=== PATIENT | male | born 1970 | race Caucasian/White ===

== ENCOUNTER 2016-07-25 07:53 | Inpatient (IN) ==
[2016-07-25] MEDS ORDERED: DUONEB (A & A) INH ONE (08:04)
--- NOTE | 2016-07-25 08:49 | Diag Imaging Result Document ---
PROCEDURE NAME: CHEST-2 VIEWS - 07/25/2016 CHEST X-RAY, 2 VIEWS: COMPARISON: None. FINDINGS: The lungs are normally expanded and clear. Heart size and mediastinal contours are normal. No pneumothorax or pleural effusion. IMPRESSION: Negative exam.
[2016-07-25 09:00] LABS: EOS# 0.02 X1000 (0.0-0.7); EOS% 0.1 % (0.0-10.0); HEMATOCRIT 47.9 % (42.0-52.0); IMM GRAN# 0.05 X1000 (0.0-0.04); IMM GRAN% 0.2 % (0.0-0.5); LYMPH# 1.29 X1000 (1.2-3.4); LYMPH% 6.4 % (20.5-51.1); MANUAL DIFF NEEDED? YES; MCH 29.9 PG (27-31); MCHC 33.4 g/dL (33-37); MCV 89.4 FL (81-99); MONO# 0.64 X1000 (0.11-0.59); MONO% 3.2 % (1.7-9.3); MPV 10.6 FL (7.4-10.4); NEUT% 90.1 % (42.2-75.2); PLT 285 X1000 (130-400); RBC 5.36 XMIL (4.7-6.1)
[2016-07-25 09:14] LABS: AGAP 15; ALBUMIN 3.9 g/dL (3.5-5.0); ALKALINE PHOSPHATASE 129 U/L (32-122); BUN 16 mg/dL (8-22); CALCIUM 8.7 mg/dL (8.8-10.2); CHLORIDE 99 mmol/L (98-107); COSMO 280; GOT 18 U/L (10-34); GPT 17 U/L (10-44); POTASSIUM 4.2 mmol/L (3.5-5.1); SODIUM 132 mmol/L (136-145); TCO2 18 mmol/L (25-35); TOTAL BILIRUBIN 0.19 mg/dL (0.20-1.00); TOTAL PROTEIN 7.1 g/dL (6.3-8.3)
[2016-07-25 09:17] LABS: BANDS 2 % (0-1); LYMPHS 4 % (21-51)
[2016-07-25 09:19] LABS: ALLEN TEST YES; BE -4.6 mmoll (-3.0-3.0); BLOOD TYPE ARTERIAL; DRAW SITE R RADIAL; METHB 1.3 % (0.0-1.5); MODALITY ROOM AIR; O2(CT) 20.9 mL/dL (15.0-23.0); PCO2(98.6) 34 mmHg (35-45); PO2(98.6) 65 mmHg (60-100); SAMPLE BLOOD; SAO2 95.8 % (95.0-100.0); THB 16.4 g/dL (11.5-17.4); pH(98.6) 7.37 (7.35-7.45)
--- NOTE | 2016-07-25 09:29 | PROVIDER DOCUMENTATION ---
HPI-Chest Pain - General Chief Complaint: Chest Pain Stated Complaint: CP,VOMITING Time Seen by Provider: 07/25/16 08:04 Source: patient Allergies/Adverse Reactions: Patient Allergies Allergy/AdvReac Type Severity Reaction Status Date / Time No Known Allergies Allergy Verified 07/25/16 08:25 Home Medications: Home Medication List Medication Instructions Recorded Confirmed Last Taken Type No Home Medications 07/25/16 07/25/16 Unknown History - History of Present Illness-CP Nature of Presenting Problem: pt is a 45 y/o M that presents to the ER with left sided chest pain that radiates to left arm. Pain has been intermitted, aching in nature. He reports a cough with clear white sputum, n/v. Patient denies fever/chills. No cardiac history. Has been without BP meds for almost a year Location: reports: other (left chest) Chest Pain Radiation: reports: arms (left) Quality of Pain: reports: dull Severity in ED: mild, moderate Onset/Duration: abrupt, this morning Timing: still present, constant Context/Activities at Onset: reports: none Modifying Factors: improves with: nothing Associated Symptoms: reports: nausea, vomiting. denies: abdominal pain, back pain, diaphoresis, fever/chills, shortness of breath Nitro Today/Relief: no nitro taken today Aspirin Treatment Today: 325 mg x 1, provided by ED Prior Chest Pain/Cardiac Workup: reports: no prior chest pain, no prior cardiac workup Similar Symptoms Previously?: No Recently Seen Here or By Another Healthcare Provider: No Review of Systems - Adult - REVIEW OF SYSTEMS - ADULT Constitutional: denies: chills, fever Eyes: reports: no symptoms reported Ears, Nose, Mouth & Throat: denies: ear pain, sinus problem, throat pain, throat swelling Cardiovascular: reports: chest pain. denies: palpitations, syncope Respiratory: reports: cough, shortness of breath. denies: wheezing Gastrointestinal: reports: nausea, vomiting. denies: abdominal pain, diarrhea Genitourinary: reports: no symptoms reported Musculoskeletal: reports: no symptoms reported Integumentary: reports: no symptoms reported Neurological: denies: dizziness/vertigo, headache/migraines, seizure, syncope Psychiatric: reports: no symptoms reported Endocrine: reports: no symptoms reported Hematologic/Lymphatic: reports: no symptoms reported Allergic/Immunologic: reports: no symptoms reported All Other Systems: Reviewed and Negative Past History - Adult - PAST MEDICAL HISTORY-ADULT Review of Records: reports: Old Records Reviewed, Nursing Assessment Review, Medications Reviewed Cardiovascular: reports: HTN. denies: cardiac disease Other Conditions: reports: eczema - PRIOR SURGERIES/PROCEDURES Surgical/Procedure History: reports: tonsillectomy, other (vasectomy) - IMMUNIZATION STATUS Childhood Immunizations: See Nurse Assessment Flu Vaccine: See Nurse Assessment - FAMILY HISTORY Family History: reviewed, not pertinent, other (psoriasis, dm) - SOCIAL HISTORY Smoking: cigarettes, greater than 1 pack/day Living Situation: family Physical Exam-General - PHYSICAL EXAM-ADULT Initial Vital Signs Reviewed: Yes - CONSTITUTIONAL General Appearance: alert, no apparent distress - EYES Eyes: PERRL/EOMI, pink conjunctivae - HEAD, EARS, NOSE, MOUTH & THROAT HENMT: normocephalic/atraumatic, moist mucous membranes, normal ENT inspection - NECK Neck: full range of motion, normal inspection - RESPIRATORY Respiratory: no respiratory distress, no accessory muscle use, wheezing ( expiratory) - CARDIOVASCULAR Cardiovascular: regular rate, rhythm, no edema, no murmur - GASTROINTESTINAL (ABDOMEN) Abdominal Exam: normal bowel sounds, non tender, soft, no organomegaly, no pulsatile mass - MUSCULOSKELETAL Extremity: no calf tenderness, normal capillary refill, pelvis stable, pedal edema (trace to 1 plus pitting) - SKIN Integumentary: normal color, warm/dry - NEUROLOGIC Neurologic: grossly normal, no motor/sensory deficits - PSYCHIATRIC Psych/Mental Status: normal mood/affect, normal thought content, normal thought process, oriented x 3 Progress - PLAN OF CARE/RESULTS Progress/Plan/Lab Results: Vital Signs Temp Pulse Resp BP Pulse Ox 07/25/16 09:30 78 18 190/124 96 07/25/16 08:59 79 22 96 07/25/16 08:46 79 22 195/116 93 L 07/25/16 07:57 97.5 F L 97 H 20 192/114 98 No Known Allergies Allergy (Verified 07/25/16 08:25) No Home Medications 07/25/16 Laboratory 07/25/16 07/25/16 07/25/16 08:30 08:30 08:30 WBC 20.17 H RBC 5.36 Hgb 16.0 Hct 47.9 MCV 89.4 MCH 29.9 MCHC 33.4 RDW Std Deviation 13.4 Plt Count 285 MPV 10.6 H Immature Gran % (Auto) 0.2 Neut % (Auto) 90.1 H Lymph % (Auto) 6.4 L [place] % (Auto) 3.2 Eos % (Auto) 0.1 Baso % (Auto) 0.0 Immature Gran # (Auto) 0.05 H Neut # (Auto) 18.16 H Lymph # (Auto) 1.29 [place] # (Auto) 0.64 H Eos # (Auto) 0.02 Baso # (Auto) 0.01 Segmented Neutrophils 94 H Band Neutrophils 2 H Lymphocytes 4 L Specimen Type Sample Site pH pCO2 pO2 HCO3 Base Excess Oxyhemoglobin ABG O2 Sat (Calculated) ABG O2 Saturation ABG Carboxyhemoglobin ABG Methemoglobin Larry Test A-a O2 Difference Total Hemoglobin Lactate Blood Gas Modality FiO2 % Sodium 132 L Potassium 4.2 Chloride 99 Carbon Dioxide 18 L Anion Gap 15 BUN 16 Creatinine 0.7 Estimated GFR/1.73 m2 > 60 BUN/Creatinine Ratio 23 Glucose 349 H Calculated Osmolality 280 Calcium 8.7 L Total Bilirubin 0.19 L AST 18 ALT 17 Alkaline Phosphatase 129 H Troponin T Oyx-F-Psihvjkxytk Pept 417 H Total Protein 7.1 Albumin 3.9 Globulin 3.2 Albumin/Globulin Ratio 1.2 07/25/16 07/25/16 08:30 08:05 WBC RBC Hgb Hct MCV MCH MCHC RDW Std Deviation Plt Count MPV Immature Gran % (Auto) Neut % (Auto) Lymph % (Auto) [place] % (Auto) Eos % (Auto) Baso % (Auto) Immature Gran # (Auto) Neut # (Auto) Lymph # (Auto) [place] # (Auto) Eos # (Auto) Baso # (Auto) Segmented Neutrophils Band Neutrophils Lymphocytes Specimen Type ARTERIAL Sample Site R RADIAL pH 7.37 pCO2 34 L pO2 65 HCO3 21.1 Base Excess -4.6 L Oxyhemoglobin 90.9 L ABG O2 Sat (Calculated) 20.9 ABG O2 Saturation 95.8 ABG Carboxyhemoglobin 3.80 H ABG Methemoglobin 1.3 Larry Test YES A-a O2 Difference 42.0 Total Hemoglobin 16.4 Lactate 1.50 Blood Gas Modality ROOM AIR FiO2 % 21.0 Sodium Potassium Chloride Carbon Dioxide Anion Gap BUN Creatinine Estimated GFR/1.73 m2 BUN/Creatinine Ratio Glucose Calculated Osmolality Calcium Total Bilirubin AST ALT Alkaline Phosphatase Troponin T 0.031 Pcx-C-Erprkewcbfe Pept Total Protein Albumin Globulin Albumin/Globulin Ratio Orders Category Date Time Status Saline Loc NOW Care 07/25/16 08:04 Active CHEST-2 VIEWS [RAD] Stat Exams 07/25/16 08:04 Draft ABG [RESP] Routine Lab 07/25/16 08:05 Completed BLOOD CULTURE [BLDCUL] Stat Lab 07/25/16 08:30 Received CBC WITH DIFF [HEME] Stat Lab 07/25/16 08:30 Completed COMPREHENSIVE METABOLIC PANEL [CHEM] Stat Lab 07/25/16 08:30 Completed DIRECT STREP Stat Lab 07/25/16 08:33 Completed INFLUENZA SCREEN A/B Stat Lab 07/25/16 08:33 Completed PRO B-NATRIURETIC PEPTIDE Stat Lab 07/25/16 08:30 Completed TROPONIN T Stat Lab 07/25/16 08:30 Completed Albuterol 2.5MG/Ipratrop 0.5MG [Duoneb (A & A)] Med 07/25/16 08:04 Discontinued 3 ml INH NOW ONE CefTRIAXONE 1 GM/NS [Rocephin 1 gm/Ns] 50 ml Med 07/25/16 09:32 Active IV NOW Furosemide [Lasix] Med 07/25/16 09:32 Discontinued 40 mg IV NOW ONE Ibuprofen [Motrin] Med 07/25/16 09:32 Discontinued 800 mg PO NOW ONE Labetalol Med 07/25/16 09:32 Discontinued 20 mg IV NOW ONE Aerosol Treatments Routine Oth 07/25/16 08:05 Completed Aerosol Treatments Stat Oth 07/25/16 08:05 Completed Pulse Oximetry Stat Oth 07/25/16 08:04 Completed EKG [EKG] Stat Ther 07/25/16 07:56 Ordered - EKG 1 Time of EKG reading by physician:: 07:55 EKG Read and Signed by:: Peña Recio EKG Interpretation (*Must complete 3 of following elements*): Abnormal Rate: 93 Rhythm: Sinus Rhythm with PACs Isabel: normal QRS: normal KS Interval: normal ST Wave: non-specific ST changes (v2, v3) - XRAY 1 XRAY Study: Chest Impression: Abnormal XRAY Interpretation: negative per radiology, CHF( mild) per - CONSULTS/PCP/HOSPITALIST Notification #1 *Consult/PCP/Hospitalist*: ( 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) Time Discussed: 10:03 Consult Disposition: Will see in ED, Admit Departure - Departure Time of Disposition Order: 10:04 DIAGNOSIS: Chest pain in adult, Uncontrolled hypertension CHF (congestive heart failure) Qualifiers: Congestive heart failure type: systolic Congestive heart failure chronicity: acute Qualified Code(s): I50.21 - Acute systolic (congestive) heart failure Disposition: ADMITTED INPATIENT 09 Certified Medical Emergency: Emergent Condition: Stable - Critical Care Note Total Time (mins): 45 Critical Care Statement: This patient required my direct personal management to treat or rule out processes, the absence of which, could potentiallly result in sudden, clinically significant life or limb threatening deterioration. Attestation - Scribe Verification/Attestation Scribe:: Ac Soriano Acting as Scribe for:: Peña Recio Scribe documention review:: This chart was documented by a scribe and accurately reflects the service the provider performed and the decisions made by the provider. Physician Attestation - Physician Attestation I, the provider, attest to the following statement:: Peña Recio Physician documentation Attestation:: This documentation recorded by the scribe accurately reflects the service I personally performed and the decisions made by me.
[2016-07-25] MEDS ORDERED: LASIX IV ONE (09:32)
[2016-07-25] MEDS ORDERED: MOTRIN PO ONE (09:32)
[2016-07-25] MEDS ORDERED: ROCEPHIN 1 GM/NS 50 ML IV ONE (09:32)
[2016-07-25] MEDS ORDERED: LABETALOL IV ONE (09:32)
[2016-07-25] MEDS ORDERED: ZITHROMAX 500 MG/NS 250 ML IV ONE (10:05)
[2016-07-25] MEDS ORDERED: ASPIRIN PO ONE (10:48)
[2016-07-25] MEDS ORDERED: NITROGLYCERIN TOP ONE (10:48)
[2016-07-25] MEDS ORDERED: HUMULIN R IV ONE (10:50)
--- NOTE | 2016-07-25 10:51 | EKG Report ---
Test Performed on : 07/25/2016 07:55:24 AM Test Reason : cp Blood Pressure : / mmHG Vent. Rate : 093 BPM Atrial Rate : 093 BPM P-R Int : 144 ms QRS Dur : 104 ms QT Int : 358 ms P-R-T Axes : 062 069 068 degrees QTc Int : 445 ms Sinus rhythm. with premature atrial complexes. Nonspecific ST abnormality Abnormal ECG No previous ECGs available Unconfirmed Result
--- NOTE | 2016-07-25 11:34 | ED EKG INTERP ---
EKG Interpretation - EKG Time of EKG reading by physician:: 11:30 EKG Read and Signed by:: Peña Recio EKG Interpretation (*Must complete 3 of following elements*): Abnormal Rate: 73 (junctional ST depression, probably normal ) Rhythm: Normal sinus rhythm wiht sinus arrhythmia Attestation - Scribe Verification/Attestation Scribe:: Kimberley Cleary Acting as Scribe for:: Peña Recio Scribe documention review:: This chart was documented by a scribe and accurately reflects the service the provider performed and the decisions made by the provider.
[2016-07-25] MEDS ORDERED: TYLENOL PO PRN (11:49)
[2016-07-25] MEDS ORDERED: APRESOLINE IV PRN (11:49)
[2016-07-25] MEDS ORDERED: LOVENOX SUBQ SCH ×2 (11:49→18:00)
[2016-07-25] MEDS ORDERED: NICODERM PATCH TD PRN (11:49)
[2016-07-25 12:00] LABS: INR 0.98; PROTIME 10.3 Seconds (9.2-11.7)
--- NOTE | 2016-07-25 12:04 | HISTORY AND PHYSICAL ---
PRIMARY CARE PROVIDER: None. CHIEF COMPLAINT: Chest pain. HISTORY OF PRESENT ILLNESS: Mr. Crum is a 45-year-old, male with a history of uncontrolled hypertension and nicotine dependence, who presents with acute onset of chest pain that essentially woke him up out of bed this morning at 3:30. He woke up with a left-sided pressure and ache that was radiating to his left arm associated with nausea and vomiting and diaphoresis. Since that time, the pain has been intermittent, coming and going on its own without any interventions. He denies that it is getting worse every time that it comes, but he is hurting currently. He is also reporting productive cough over the past month, but denies any fevers or chills. He denies any purulent expectoration. He denies any orthopnea, lower extremity edema. He denies PND. He has had no recent abdominal pain, diarrhea or constipation. He came to the ER for evaluation. In the ER he had labs and diagnostics done. He was noted to have leukocytosis with a WBC of 20. His chemistry revealed a glucose of 349, proBNP of 417. An ABG was also done and showed elevated carboxyhemoglobin, but his ventilatory status was stable. EKG showed sinus rhythm, but he did have half a millimeter of ST depression in the anterior leads. Cardiac enzymes are normal. He states that he has not seen a doctor in over 2 years. He is supposed to be on blood pressure medicine, but he has not taken any because of his financial situation in over 2 years. Given his constellation of symptoms, we are going to admit the patient for further treatment and evaluation. PAST MEDICAL HISTORY: 1. Nicotine dependence. 2. Hypertension, uncontrolled. 3. Eczema. SURGICAL HISTORY: Vasectomy and tonsillectomy. SOCIAL HISTORY: Patient smokes a pack a day. He denies drug or alcohol use. 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 He is ; he has no children. FAMILY HISTORY: Father with a brain aneurysm; mother unknown. REVIEW OF SYSTEMS: Fourteen-point review of systems obtained and found to be negative with the exception of the HPI. ALLERGIES: None. HOME MEDICATIONS: None. PHYSICAL EXAMINATION: VITAL SIGNS: Blood pressure is 190/124, heart rate 78, respiratory rate 18, O2 saturation 96% on room air. Temperature is 97.5 degrees. GENERAL: This is an overweight, male, lying in hospital bed in no acute distress. NEUROLOGIC: The patient is awake, alert, and oriented. He follows commands without focal deficits. HEENT: Head is atraumatic and normocephalic. Pupils are equal, round, reactive to light. Oral mucosa is moist. NECK: Trachea is midline. No JVD or carotid bruits. CHEST: Diminished at the bases, but clear to auscultation bilaterally. CV: Regular rate and rhythm. No murmurs, gallops, clicks, or rubs. S1 and S2 is noted. GI: Soft, nondistended, nontender. Bowel sounds are positive. EXTREMITIES: Without edema, clubbing or cyanosis. Pulses are palpable bilaterally. DIAGNOSTIC DATA: Chest x-ray shows mild cardiomegaly and perhaps some increased interstitial markings. Nothing acute. EKG with sinus rhythm with nonspecific ST depression in the anterior leads. WBC 20, hemoglobin 16, hematocrit 47.9, platelet count 285. ABG on room air: A pH 7.37, CO2 34, O2 65, bicarbonate 21. Sodium 132, potassium 4.2, chloride 99, CO2 18, anion gap 15. BUN 16, creatinine 0.7, glucose 349. Bilirubin 0.19, AST 18, ALT 17, alkaline phosphatase 129. Troponin 0.031. ProBNP 417. Albumin 3.9. ASSESSMENT/PLAN: 1. Chest pain: Given his uncontrolled comorbidities, his symptoms are concerning for ischemic heart disease. We are going to admit him and check an echocardiogram. We will out myocardial infarction with cardiac enzymes. Add nitroglycerin paste, aspirin and monitor telemetry closely. We are also going to check a D-dimer; if positive, we will check a computed tomography angiography of his chest to rule out for pulmonary embolism and interstitial lung disease. 2. Leukocytosis: This is isolated. The patient is not tachycardic nor is he febrile, but given the symptoms of cough and expectoration we are going to go ahead and treat him for bronchitis with DuoNebs, Rocephin and aggressive pulmonary toilet. We may consider CT of the chest if his D-dimer is positive. 3. Uncontrolled hyperglycemia: Patient has a glucose of 349, which likely gives him the diagnosis of diabetes. We are going to check a hemoglobin A1c. Add pattern sugars and sliding scale insulin. He will need significant lifestyle modification education. 4. Uncontrolled hypertension: We are adding half an inch of Nitrol paste as well as p.r.n. hydralazine and labetalol. 5. Nicotine dependence: Patient has been highly advised to quit smoking. Nicotine patch has been prescribed. We will continue daily cessation education. 6. Medical noncompliance: Patient reports he has not been taking any medicines or seeing any providers in the past 2 years. We gave him some education on the [facility], as well as either 3 or 4 dollar medications in the surrounding area. 7. Deep vein thrombosis prophylaxis with Lovenox. Further recommendations to follow. Dictated by SUSAN Benavides for Quinn Gordon MD
[2016-07-25 12:19] LABS: FREE T4 1.24 ng/dL (0.93-1.70)
[2016-07-25] MEDS: ROCEPHIN 1 GM/NS 50 ML IV SCH ×2 (12:28→12:46)
[2016-07-25 12:40] LABS: CK INDEX 5.1 (0.0-2.5); CK-MB 29.43 ng/mL (0.0-5.0)
[2016-07-25] MEDS ORDERED: LOVENOX SUBQ ONE (14:00)
--- NOTE | 2016-07-25 14:06 | EKG Report ---
Test Performed on : 07/25/2016 1:56:43 PM Test Reason : nonqmi Blood Pressure : / mmHG Vent. Rate : 085 BPM Atrial Rate : 085 BPM P-R Int : 146 ms QRS Dur : 100 ms QT Int : 380 ms P-R-T Axes : 068 072 059 degrees QTc Int : 452 ms Normal sinus rhythm. Normal ECG When compared with ECG of 25-JUL-2016 11:30, (Unconfirmed) T wave inversion now evident in Inferior leads Confirmed by Angelo GODWIN, Larry Quinonez ([id number]) on 07/25/2016 5:19:34 PM
[2016-07-25 14:14] LABS: URINE CULTURE NEEDED? NO; URINE MICRO REVIEW NEEDED? NO; URINE SOURCE CLEAN CATCH
[2016-07-25] MEDS ORDERED: LOPRESSOR PO SCH ×4 (14:15→21:04)
[2016-07-25 14:25] LABS: BILIRUBIN URINE NEGATIVE (NEGATIVE); BLOOD URINE NEGATIVE (NEGATIVE); COLOR YELLOW; GLUCOSE URINE >1000 mg/dL (NEGATIVE); LEUKOCYTES URINE NEGATIVE (NEGATIVE); NITRITE URINE NEGATIVE (NEGATIVE); PROTEIN URINE TRACE mg/dL (NEGATIVE); SP GRAVITY URINE 1.014; TURBIDITY URINE CLEAR (CLEAR); UROBILINOGEN URINE NORMAL (NORMAL)
[2016-07-25 14:27] LABS: UR EPITHELIAL CELLS <10 /HPF (<10); URINE BACTERIA NEGATIVE /HPF; URINE RBC <10 /HPF (<10); URINE WBC <10 /HPF (<10)
[2016-07-25 14:28] LABS: UR AMPHETAMINES QUAL NONE DETECTED (NONE DETECT); UR BARBITUATES QUAL NONE DETECTED (NONE DETECT); UR BENZODIAZEPIN QUAL NONE DETECTED (NONE DETECT); UR CANNABINOIDS QUAL NONE DETECTED (NONE DETECT); UR COCAINE QUAL NONE DETECTED (NONE DETECT); UR METHADONE QUAL NONE DETECTED (NONE DETECT); UR OPIATES QUAL NONE DETECTED (NONE DETECT); UR OXYCODONE QUAL NONE DETECTED (NONE DETECT); UR PCP QUAL NONE DETECTED (NONE DETECT)
--- NOTE | 2016-07-25 14:43 | CONSULTATION ---
DATE OF CONSULTATION: 07/25/2016 HISTORY OF PRESENT ILLNESS: cardiology consult for non-Q- wave myocardial infarction. Patient 45 year old has history of hypertension, has nicotine dependence, comes with complaints of having chest pain with which he woke up at 3:30 a.m. and described as left-sided pressure-like sensation with radiation to the left arm associated with some nausea and diaphoresis. Patient has been having intermittent chest pains and came to the emergency room. Electrocardiogram revealed normal sinus rhythm with nonspecific ST-T changes with minimal 0.5 mm elevation nonspecific changes in the inferior leads. Repeat electrocardiogram at 1356 hours revealed no significant ST elevation to suggest acute ST elevation DC. At time of my examination patient was pain free. For the last few months he has been having episodes of chest discomfort, which he describes as starts as a sharp-like then pressure-like sensation which lasts for about 10 minutes relieved with rest. This has been ongoing. Symptoms worsened this morning and he came to the emergency room where he was admitted. The episodes of chest pain were also associated with some shortness of breath. There are no palpitations. There is no syncope. REVIEW OF SYSTEMS: A 14-point review of systems was done. Gastrointestinal: There is no history of nausea, vomiting, diarrhea. There is no history of hematemesis or melena. Central nervous system: No focal weakness to suggest a CVA or TIA. Genitourinary: There is no dysuria or hematuria. PAST MEDICAL HISTORY: Hypertension, nicotine dependence. PAST SURGICAL HISTORY: Vasectomy, tonsillectomy. SOCIAL HISTORY: Patient smokes a pack of cigarettes a day. He denies alcohol or drug abuse. 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 FAMILY HISTORY: There is no premature family history of coronary artery disease. PHYSICAL EXAMINATION: Vital signs: When he came in, blood pressure was 190/ 124. At time of my examination, blood pressure was 151/98. Cardiovascular: Normal jugular venous pressure. There no thyromegaly. There is no carotid bruit. First and second heart sounds were heard. There is no S3, S4 or gallop. Respiratory: Normal air entry. There are no crepitations or rhonchi. Abdomen: Soft, nontender. There was no guarding or rigidity. Bowel sounds were heard. Central nervous system: Alert and was moving all 4 extremities. Extremities: Examination of extremities revealed no pedal edema. HEENT: Head atraumatic, normocephalic. Pupils were equal and reacting to light. LABORATORY STUDIES AND IMAGING: Chest x-ray was unremarkable. WBC 20, hemoglobin 16, hematocrit 47, platelet count of 285,000. Chemistry: Sodium 132, potassium 4.2, BUN 16, creatinine 0.7. His troponin was 0.4 with a creatine kinase of 573, CK-MB of 29.43, TSH 1.9, glucose 349, hemoglobin A1c of 9.0. ASSESSMENT AND PLAN: Mr. Randolph Crum is a 45-year-old, gentleman with hypertension who comes with complaints of ongoing chest pain for the last few months as described above. He had severe chest discomfort this morning. Patient has non-Q-wave myocardial infarction. 1. Given this, we will get serial cardiac enzymes. We will set him up for a left heart catheterization. Risks, benefits, alternatives were explained. Patient will be set up for left heart catheterization in the morning. 2. We will get serial cardiac enzymes. He has been started on aspirin and Lovenox. We will also give him beta-blockers and Lipitor. We will also get an echocardiogram to assess cardiac and valvular function. 3. His white count was elevated. He has been started on antibiotics. No obvious source of infection. This may be stress related as well. However, would recommend continuing the antibiotics at the prsent time He has a hemoglobin A1c of 9, elevated blood sugars. This is new onset diabetes. We will defer treatment to the hospitalist service. 4. His proBNP was 417. 5. Thyroid stimulating hormone was 1.90. 6. We will get an echocardiogram. He came in with accelerated hypertension as we will start RAYMOND inhibitors as well to control his blood pressures. He is not known to be allergic to any medications. Thank you for the consult. We will follow hospital course. [facility] HOSPITALJodie
[2016-07-25 14:48] LABS: HDL 27 mg/dL (35-55); LDL 111 mg/dL; TRIGLYCERIDES 137 mg/dL (39-160); VLDL 27 mg/dL
[2016-07-25] MEDS: 1/2 NS 1,000 ML IV SCH (16:14)
[2016-07-25] MEDS: COZAAR PO SCH (16:14)
[2016-07-25] MEDS: NITROGLYCERIN TOP SCH ×2 (16:14→21:26)
[2016-07-25] MEDS: HUMALOG SUBQ SCH ×2 (16:30→21:25)
[2016-07-25 20:52] LABS: CK INDEX 5.3 (0.0-2.5); CK-MB 137.9 ng/mL (0.0-5.0)
[2016-07-25] MEDS ORDERED: LIPITOR PO SCH (21:00)
[2016-07-25] MEDS ORDERED: LOPRESSOR PO ONE ×2 (21:07→21:30)
[2016-07-26] MEDS: 1/2 NS 1,000 ML IV SCH (03:20)
[2016-07-26 03:46] LABS: MANUAL DIFF NEEDED? NO
[2016-07-26 03:51] LABS: BASO% 0.1 % (0.0-0.8); EOS# 0.17 X1000 (0.0-0.7); EOS% 1.1 % (0.0-10.0); HEMATOCRIT 43.1 % (42.0-52.0); HEMOGLOBIN 14.6 g/dL (14.0-18.0); IMM GRAN# 0.03 X1000 (0.0-0.04); IMM GRAN% 0.2 % (0.0-0.5); LYMPH% 21.5 % (20.5-51.1); MCH 30.4 PG (27-31); MCHC 33.9 g/dL (33-37); MCV 89.8 FL (81-99); MONO# 1.32 X1000 (0.11-0.59); MONO% 8.4 % (1.7-9.3); MPV 10.1 FL (7.4-10.4); NEUT% 68.7 % (42.2-75.2); PLT 279 X1000 (130-400)
[2016-07-26 03:57] LABS: INR 1.01; PROTIME 10.6 Seconds (9.2-11.7); PTT 29.6 Seconds (22.0-36.0)
[2016-07-26 04:02] LABS: AGAP 14; ALBUMIN 3.7 g/dL (3.5-5.0); ALKALINE PHOSPHATASE 89 U/L (32-122); BUN 12 mg/dL (8-22); CALCIUM 8.8 mg/dL (8.8-10.2); CHLORIDE 99 mmol/L (98-107); COSMO 275; GOT 233 U/L (10-34); GPT 45 U/L (10-44); MAGNESIUM 1.7 mg/dL (1.5-2.7); POTASSIUM 4.2 mmol/L (3.5-5.1); SODIUM 135 mmol/L (136-145); TCO2 22 mmol/L (25-35); TOTAL BILIRUBIN 0.52 mg/dL (0.20-1.00); TOTAL PROTEIN 6.7 g/dL (6.3-8.3)
[2016-07-26 04:03] LABS: HDL 22 mg/dL (35-55); LDL 74 mg/dL; TRIGLYCERIDES 254 mg/dL (39-160); VLDL 51 mg/dL
[2016-07-26 04:28] LABS: CK INDEX 5.2 (0.0-2.5); CK-MB 93.23 ng/mL (0.0-5.0)
--- NOTE | 2016-07-26 05:30 | EKG Report ---
Test Performed on : 07/25/2016 11:30:36 AM Test Reason : REPEAT Blood Pressure : / mmHG Vent. Rate : 073 BPM Atrial Rate : 073 BPM P-R Int : 146 ms QRS Dur : 098 ms QT Int : 416 ms P-R-T Axes : 052 067 089 degrees QTc Int : 458 ms Normal sinus rhythm. with sinus arrhythmia. Junctional ST depression, probably normal Borderline ECG When compared with ECG of 25-JUL-2016 07:55, (Unconfirmed) premature atrial complexes. are no longer present Nonspecific T wave abnormality now evident in Lateral leads Unconfirmed Result
[2016-07-26] MEDS ORDERED: LOVENOX SUBQ SCH (06:00)
[2016-07-26] MEDS: NITROGLYCERIN TOP SCH (06:09)
[2016-07-26] MEDS: HUMALOG SUBQ SCH ×2 (06:12→13:11)
--- NOTE | 2016-07-26 06:43 | EKG Report ---
Test Performed on : 07/26/2016 06:27:31 AM Test Reason : cath Blood Pressure : / mmHG Vent. Rate : 076 BPM Atrial Rate : 076 BPM P-R Int : 140 ms QRS Dur : 094 ms QT Int : 418 ms P-R-T Axes : 036 068 -06 degrees QTc Int : 470 ms Sinus rhythm. with marked sinus arrhythmia. Nonspecific T wave abnormality Prolonged QT Abnormal ECG When compared with ECG of 25-JUL-2016 13:56, No significant change was found Confirmed by Angelo GODWIN, Larry Quinonez ([id number]) on 07/26/2016 5:24:33 PM
[2016-07-26] MEDS ORDERED: PRILOSEC PO SCH (07:00)
[2016-07-26 07:44] VITALS: BP 114/71
[2016-07-26] MEDS: COZAAR PO SCH (08:44)
[2016-07-26] MEDS ORDERED: ASPIRIN PO SCH (09:00)
[2016-07-26] MEDS ORDERED: VERSED ONE (10:45)
[2016-07-26] MEDS ORDERED: DILAUDID ONE (10:45)
[2016-07-26] MEDS ORDERED: HEPARIN 1000 UNITS/NS 1,000 ML ONE (10:45)
[2016-07-26] MEDS ORDERED: CLAVE TWINSITE 32 IN 11959 ONE (11:03)
--- NOTE | 2016-07-26 12:17 | CARDIAC CATH REPORT ---
PROCEDURE NAME: - INDICATION: [id number] myocardial infarction . PROCEDURES PERFORMED: 1. Left heart catheterization. 2. Selective coronary angiography. 3. Left ventriculogram. PROCEDURE IN DETAIL: Mr. Crum was brought to the catheterization laboratory in fasting state, informed consent was obtained, prepped in usual fashion. He was anesthetized over the right radial artery after Larry test proved adequate. A 5-Welsh sheath was placed via true Seldinger technique. Radial cocktail was administered. Catheters were introduced and hemodynamic measurements made of the ascending thoracic aorta. Coronary angiography was performed in multiple views using JL3.5 and JR4 diagnostic catheters. Left heart catheterization and left ventriculogram was performed using a JR4. At the conclusion of the procedure, all sheaths and catheters were removed. TR band was left inflated at 12 mL of air. Good capillary refill. Good hemostasis. Contrast 80 mL and blood loss 5 mL. No apparent complications. FINDINGS: 1. The left main is normal. 2. Left anterior descending originates from the left main. There is proximal 30% to 40% disease and moderate disease upwards of 50% scattered throughout the mid and distal vessels. There is an extremely small 1st diagonal. The 2nd diagonal has a proximal 40% to 50% lesion. 3. Circumflex originates from the left main. There is diffuse 50% to 60% disease noted throughout the proximal vessel with an ostial 50% to 60% lesion. The mid vessel, as well, has 50% to 60% disease and there are extremely small distal vessels. There does appear to be a fresh occlusion of a high obtuse marginal proximally. 4. Right coronary artery has ostial 60% to 70% disease with heavily diseased and calcified mid vessel. There is an early chronic total occlusion of the early distal vessel. There are left- to-left right collaterals primarily from the septals that feed the right coronary. 5. Left ventriculogram demonstrates an EF of 40%. There is inferior akinesis. 6. Aortic blood pressure is 88/65 with a mean of 76. 7. Left ventricular pressure is 87/11 with an LVEDP of 18. ASSESSMENT: Mr. Crum is a 45-year-old male who presented with a [id number] myocardial infarction. PLAN: Patient has an old occluded right coronary artery and a fresh occlusion appears of the obtuse marginal. We have called the Transfer Center at [facility] and they have agreed to accept the patient in transfer. Further recommendations to follow.
--- NOTE | 2016-07-26 16:27 | DISCHARGE SUMMARY ---
ADMISSION DATE: 07/25/2016 DISCHARGE DATE: 07/26/2016 DISCHARGE DIAGNOSES: 1. Chest pain, secondary to known ST elevation myocardial infarction. Status post left heart catheterization. 2. Leukocytosis. 3. Uncontrolled diabetes. 4. Hypertension, uncontrolled. 5. Nicotine dependence. 6. Medical noncompliance. CONSULTATION: Cardiology Department. HOSPITAL COURSE: Mr. Crum is a 45-year-old male with a past medical history of uncontrolled hypertension, diabetes and nicotine dependence, who came to the emergency department with a chief complaint of chest pain that woke him up out of the bed yesterday at 3:30. He states that the chest pain was pressure-like an ache radiated to his left arm associated with nausea and vomiting and diaphoresis. Also, he states that he has been having this kind of intermittent, coming and going on pain for some weeks now, but he did not seek any medical attention. He was admitted to the CIC unit and Cardiology Department was consulted. The troponins increased from 0.03 to 0.4 and then to 4.6. This patient went for a cardiac cath today, and because of the evidence of some kind of obstruction at the level of the RCA and LAD, they decided to transfer this patient to a higher level care facility, [facility], for further treatment. Upon discharge, the patient was in unstable medical condition. PHYSICAL EXAMINATION: Vital signs: Temperature 98.7 degrees, pulse 74, respiratory rate 18, blood pressure 114/71, oxygen saturation 98 on room air. HEENT: Head normocephalic. No trauma. PERRLA. Neck: Supple. No JVD. No masses. Central trachea. Chest: Clear to auscultation. No wheezing. No rales. Cardiovascular: RRR. No murmurs. No gallops. No rubs. Abdomen: Soft, nontender, nondistended. No hepatosplenomegaly. Obese. Extremities: No edema. No clubbing. No cyanosis. Neurological examination: The patient is alert, oriented x3. No focal neurological deficits. LABORATORY: WBC 15.8, hemoglobin 14.6, hematocrit 43.1. PT 10.6, INR 1.0, PTT 29.6. Sodium 135, potassium 4.2, chloride 99, bicarbonate 22, BUN 12, creatinine 0.7, glucose 191, calcium 8.8, phosphorus 2.8, magnesium 1.7. Troponins 4.6, CK-MB 93.23, CK index 5.2, CK 1806. FOLLOW UP: This patient will be transferred to [facility] for further treatment. Discharge medication will be done upon discharge from [facility].
--- NOTE | 2016-07-26 18:40 | ECHO REPORT ---
ORDER DATE: 07/25/2016 ECHOCARDIOGRAM: MEASUREMENTS: Left ventricular end-diastolic diameter 5.6, end systolic diameter 4.5, posterior wall thickness 1.3, septal thickness 1.1, left atrium 3.9, aortic root 3.7. SUMMARY: 1. Technically difficult study due to limited acoustic window quality. 2. Aortic, mitral and tricuspid valves are without structural abnormality while pulmonic valve is not well demonstrated. There is trace aortic regurgitation and mild mitral regurgitation. The aortic root is normal in size. 3. Normal left ventricular dimensions suggested on 2-dimensional images. Estimated left ejection fraction approximately 55%. Regional wall motion analysis is somewhat challenging given limitations of the study. There appears to be a region of mild hypokinesis in the mid to apical inferolateral region of the left ventricle. Doppler suggests impaired left ventricle relaxation (grade 1 left ventricular diastolic dysfunction). The left atrium is mildly enlarged. Right atrium and right ventricle are normal size with grossly preserved right ventricular systolic performance. 4. No pericardial effusion. CONCLUSION: 1. Technically difficult study. 2. Mild mitral regurgitation. 3. Estimated left ejection fraction of 55%. Difficult wall motion analysis suggests mild hypokinesis in a mid to apical inferolateral region. 4. Doppler suggests grade 1 left ventricular diastolic dysfunction. 5. Mild left atrial enlargement.
== END 2016-07-26 13:20 | disposition short-term general hospital (02) | DRG 282 ==
LOC: ED 07:53 → 4N 11:22 → OBSVTOIN 11:22 → DIRADM 14:12 → 4N 14:18 → 3S 15:55
PROVIDERS: ADMIT Internal Medicine; ATTEND Internal Medicine
PROC: 4A023N7 Measurement of Cardiac Sampling and Pressure, Left Heart, Percutaneous Approach (ICD-10-PCS; principal; 2016-07-26)
PROC: B2111ZZ Fluoroscopy of Multiple Coronary Arteries using Low Osmolar Contrast (ICD-10-PCS; 2016-07-26)
PROC: B2151ZZ Fluoroscopy of Left Heart using Low Osmolar Contrast (ICD-10-PCS; 2016-07-26)
DX: I21.4 Non-ST elevation (NSTEMI) myocardial infarction (principal); E11.65 Type 2 diabetes mellitus with hyperglycemia; I10 Essential (primary) hypertension; Z83.3 Family history of diabetes mellitus; F17.210 Nicotine dependence, cigarettes, uncomplicated; T50.906A Underdosing of unspecified drugs, medicaments and biological substances, initial encounter; Z91.120 Patient's intentional underdosing of medication regimen due to financial hardship; E66.9 Obesity, unspecified; I25.10 Atherosclerotic heart disease of native coronary artery without angina pectoris
CPT/HCPCS: 71020; 80053; 80061; 81001; 82550; 82553; 82805; 82948; 83036; 83735; 83880; 84100; 84439; 84443; 84484; 85025; 85379; 85610; 85730; 87040; 87081; 87430; 87804; 93005; 93010; 93306; 93458; 94640; 94761; 96365; 96367; 96375; G0480; J0456; J0696; J1170; J1644; J1650; J1815; J1940; J2250; Q9967; 80324; 80345; 80346; 80349; 80353; 80358; 80361; 80365; 83992

== ENCOUNTER 2019-03-22 07:40 | Inpatient (IN) ==
[2019-03-22] MEDS ORDERED: ROCEPHIN 1 GM in NS 50 ML IV ONE (08:09)
[2019-03-22] MEDS ORDERED: SOLU-MEDROL IV ONE (08:09)
[2019-03-22] MEDS ORDERED: ZITHROMAX PO ONE (08:09)
[2019-03-22] MEDS ORDERED: NS 1,000 ML IV ONE (08:09)
[2019-03-22] MEDS ORDERED: TYLENOL PO ONE (08:09)
[2019-03-22] MEDS ORDERED: DUONEB (A & A) INH ONE (08:09)
[2019-03-22] MEDS ORDERED: TORADOL IV ONE (08:10)
[2019-03-22 08:26] LABS: BASO# 0.01 X1000 (0.0-0.2); BASO% 0.1 % (0.0-0.8); HEMATOCRIT 39.2 % (42.0-52.0); IMM GRAN# 0.03 X1000 (0.0-0.04); IMM GRAN% 0.3 % (0.0-0.5); LYMPH# 0.76 X1000 (1.2-3.4); MCH 28.8 PG (27-31); MCHC 33.2 g/dL (33-37); MCV 86.9 FL (81-99); MONO# 0.93 X1000 (0.11-0.59); MONO% 8.6 % (1.7-9.3); MPV 10.4 FL (7.4-10.4); NEUT# 9.14 X1000 (1.4-6.5); PLT 225 X1000 (130-400); RBC 4.51 XMIL (4.7-6.1); RDW 13.7 % (11.5-14.5); WBC 10.87 X1000 (4.8-10.8)
--- NOTE | 2019-03-22 08:38 | Diag Imaging Result Doc PS360 ---
CHEST-2 VIEWS - 03/22/2019 INDICATION: cough COMPARISON: 07/25/2016 FINDINGS: There is substantial infiltrate in the left lower lobe. Heart size is normal. No pneumothorax or pleural effusion. IMPRESSION: Left lower lobe pneumonia. Electronically signed by Dustin Lowry 03/22/2019 8:36 AM
[2019-03-22 08:45] LABS: ESTIMATED GFR > 60
[2019-03-22 08:50] LABS: AGAP 19; ALB/GLOB RATIO 1.3; ALBUMIN 3.2 g/dL (3.5-5.0); ALKALINE PHOSPHATASE 57 U/L (32-122); BUN 14 mg/dL (8-22); CHLORIDE 87 mmol/L (98-107); COSMO 262; CREATININE 0.7 mg/dL (0.7-1.2); GLUCOSE 208 mg/dL (70-104); GOT 50 U/L (10-34); GPT 26 U/L (10-44); POTASSIUM 3.7 mmol/L (3.5-5.1); SODIUM 127 mmol/L (136-145); TCO2 21 mmol/L (25-35); TOTAL BILIRUBIN 0.91 mg/dL (0.20-1.00); TOTAL PROTEIN 5.7 g/dL (6.3-8.3)
[2019-03-22] MEDS ORDERED: LEVAQUIN 750 MG/D5W 750 MG/150 ML IVPB IV ONE (08:54)
--- NOTE | 2019-03-22 09:05 | PROVIDER DOCUMENTATION ---
HPI-Respiratory General - General Chief Complaint: Chest Pain Stated Complaint: HEART PT CP, COUGH Time Seen by Provider: 03/22/19 08:03 Source: patient Allergies/Adverse Reactions: Patient Allergies Allergy/AdvReac Type Severity Reaction Status Date / Time cephalexin [From Keflex] AdvReac Mild DIARRHEA Verified 03/22/19 08:56 Home Medications: Home Medication List Medication Instructions Recorded Confirmed Last Taken Type No Home Medications 07/25/16 07/25/16 Unknown History - History of Present Illness-Resp Nature of Presenting Problem: Fever, cough, left sided chest pain worsening over the last week. Thinks may have pneumonia. Some SOB and diaphoresis. No radiation of pain. HAS ASCVD and worried it may cause problems with his heart. Sees Dr. Holman. No known infectious exposures. Drove self to ER. Smoker, unable to smoke for last 2 days Quality of Pain: reports: aching, sharp Severity in ED: reports: moderate Onset/Duration: reports: last week Timing: reports: still present, constant, getting worse Context: reports: recent URI Exposure: reports: unknown cause Cough Quality/Degree: reports: moderate, productive cough Episode Frequency: no prior episodes Current Respiratory Medication Therapy: Initiated none Modifying Factors: improves with: rest. worse with: exertion, coughing Associated Symptoms: reports: chest pain/soreness, cough, dizziness, fever/chills, lightheadedness, muscle/bodyaches, nasal drainage, shortness of breath, sore throat, sweaty, wheezing Similar Symptoms Previously?: No Recently seen or treated by another doctor?: No Review of Systems - Adult - REVIEW OF SYSTEMS - ADULT Constitutional: reports: see HPI, chills, fever (subjective) Eyes: reports: no symptoms reported Ears, Nose, Mouth & Throat: reports: no symptoms reported Cardiovascular: reports: see HPI, chest pain. denies: edema, heart murmur, irregular heart rate, orthopnea, palpitations, poor circulation, PND, syncope Respiratory: reports: see HPI, cough, dyspnea on exertion, excessive sputum production, shortness of breath, wheezing. denies: chronic cough, hemoptysis, pleurisy Gastrointestinal: reports: no symptoms reported Genitourinary: reports: no symptoms reported Musculoskeletal: reports: no symptoms reported Integumentary: reports: no symptoms reported Neurological: reports: no symptoms reported Psychiatric: reports: no symptoms reported Endocrine: reports: no symptoms reported Hematologic/Lymphatic: reports: no symptoms reported Allergic/Immunologic: reports: no symptoms reported All Other Systems: Reviewed and Negative Past History - Adult - PAST MEDICAL HISTORY-ADULT Review of Records: reports: Old Records Reviewed, Nursing Assessment Review, Medications Reviewed, Social history reviewed & non-contributory. Major Childhood Illnesses: reports: denies history Cardiovascular: reports: cardiac disease, HTN Respiratory: reports: denies history Gastrointestinal: reports: denies history Obstetrical/Gynecological: reports: denies history Genitourinary: reports: denies history Musculoskeletal: reports: denies history Neurological: reports: denies history Endocrine/Immune: reports: denies history Other Conditions: reports: eczema - PRIOR SURGERIES/PROCEDURES Surgical/Procedure History: reports: tonsillectomy, other (vasectomy) - IMMUNIZATION STATUS Childhood Immunizations: See Nurse Assessment Flu Vaccine: See Nurse Assessment - FAMILY HISTORY Family History: reviewed, not pertinent, other (psoriasis, dm) - SOCIAL HISTORY Smoking: cigarettes, greater than 1 pack/day Provider spent 3-5 mins advising pt. on dangers of tobacco.: Discussed manners to quit use, and f/u contacts for add'l counseling. Substance Use: none/never Alcohol Use Frequency: rarely Living Situation: alone Physical Exam-General - PHYSICAL EXAM-ADULT Initial Vital Signs Reviewed: Yes (Tachycardic, tachypneic, initially afebrile) - CONSTITUTIONAL General Appearance: appears well, alert, no apparent distress, other (hoarse voice) - EYES Eyes: PERRL/EOMI, pink conjunctivae - HEAD, EARS, NOSE, MOUTH & THROAT HENMT: normocephalic/atraumatic, moist mucous membranes, normal ENT inspection, pharynx normal - NECK Neck: non-tender, full range of motion, supple, normal inspection - RESPIRATORY Respiratory: chest non-tender, no pleuratic chest pain, no respiratory distress, no accessory muscle use, decreased breath sounds, rhonchi (left), wheezing (exp) , dull on percussion, prolonged expiration, increased rate - CARDIOVASCULAR Cardiovascular: normal peripheral pulses, regular rate, rhythm, no edema, no gallop, no JVD, no murmur - GASTROINTESTINAL (ABDOMEN) Abdominal Exam: normal bowel sounds, non tender, soft, no organomegaly, no pulsatile mass - LYMPHATIC Lymphatic: no adenopathy - MUSCULOSKELETAL Back Exam: normal inspection. negative: decreased range of motion Extremity: normal range of motion, non-tender, normal gait, normal inspection, no pedal edema, normal capillary refill - SKIN Integumentary: normal turgor, warm/dry, pallor - NEUROLOGIC Neurologic: dominatrix II-XII nml as tested, grossly normal, no motor/sensory deficits - PSYCHIATRIC Psych/Mental Status: normal mood/affect, normal thought content, normal thought process, oriented x 3 - HEART Score HEART Score: History: Slightly Suspicious HEART Score: ECG: Non-Specific Repolarization Disturbance/LBBB/PM HEART Score: Age: 45-65 Years HEART Score: Risk Factors for Atherosclerotic Disease: > or = 3 Risk Factors or History of Atherosclerotic Disease HEART Score: Troponin: < or = Normal Limit Total HEART Score:: 4 Progress - PLAN OF CARE/RESULTS Progress/Plan/Lab Results: Vital Signs - 8 hr 03/22/19 07:43 Temperature 98.8 F Pulse Rate 103 H Respiratory Rate 20 Blood Pressure 139/90 O2 Sat by Pulse Oximetry 95 Laboratory Results - last 24 hr 03/22/19 03/22/19 03/22/19 08:08 08:08 08:08 WBC 10.87 H RBC 4.51 L Hgb 13.0 L Hct 39.2 L MCV 86.9 MCH 28.8 MCHC 33.2 RDW Std Deviation 13.7 Plt Count 225 MPV 10.4 Immature Gran % (Auto) 0.3 Neut % (Auto) 84.0 H Lymph % (Auto) 7.0 L [place] % (Auto) 8.6 Eos % (Auto) 0.0 Baso % (Auto) 0.1 Immature Gran # (Auto) 0.03 Neut # (Auto) 9.14 H Lymph # (Auto) 0.76 L [place] # (Auto) 0.93 H Eos # (Auto) 0.00 Baso # (Auto) 0.01 Sodium 127 L Potassium 3.7 Chloride 87 L Carbon Dioxide 21 L Anion Gap 19 BUN 14 Creatinine 0.7 Estimated GFR/1.73 m2 > 60 BUN/Creatinine Ratio 20 Glucose 208 H Calculated Osmolality 262 Calcium 8.0 L Total Bilirubin 0.91 AST 50 H ALT 26 Alkaline Phosphatase 57 Troponin T Qpw-R-Mmgnrpasade Pept Total Protein 5.7 L Albumin 3.2 L Globulin 2.5 Albumin/Globulin Ratio 1.3 Plasma Lactate 1.8 11/17/19 11/17/19 08:08 08:08 WBC RBC Hgb Hct MCV MCH MCHC RDW Std Deviation Plt Count MPV Immature Gran % (Auto) Neut % (Auto) Lymph % (Auto) [place] % (Auto) Eos % (Auto) Baso % (Auto) Immature Gran # (Auto) Neut # (Auto) Lymph # (Auto) [place] # (Auto) Eos # (Auto) Baso # (Auto) Sodium Potassium Chloride Carbon Dioxide Anion Gap BUN Creatinine Estimated GFR/1.73 m2 BUN/Creatinine Ratio Glucose Calculated Osmolality Calcium Total Bilirubin AST ALT Alkaline Phosphatase Troponin T 0.080 Jtd-F-Wuriwjewzbf Pept 5379 H Total Protein Albumin Globulin Albumin/Globulin Ratio Plasma Lactate Orders Category Date Time Status Saline Loc NOW Care 03/22/19 08:09 Active CHEST-2 VIEWS [RAD] Stat Exams 03/22/19 08:09 Completed BLOOD CULTURE [BLDCUL] Stat Lab 03/22/19 08:48 Received CBC WITH DIFF [HEME] Stat Lab 03/22/19 08:08 Completed COMPREHENSIVE METABOLIC PANEL [CHEM] Stat Lab 03/22/19 08:08 Completed INFLUENZA SCREEN A/B Stat Lab 03/22/19 08:48 Received LACTATE, PLASMA [CHEM] Stat Lab 03/22/19 08:08 Completed PRO B-NATRIURETIC PEPTIDE Stat Lab 03/22/19 08:08 Completed SPUTUM CULTURE WITH GRAM STAIN [RM] Urgent Lab 03/22/19 08:09 Uncollected TROPONIN T Stat Lab 03/22/19 08:08 Completed 0.9% Sodium Chloride Inj [Ns] 1,000 ml Med 03/22/19 08:09 Active IV 999 mls/hr Acetaminophen [Tylenol] Med 03/22/19 08:09 Discontinued 650 mg PO NOW ONE Albuterol 2.5MG/Ipratrop 0.5MG [Duoneb (A & A)] Med 03/22/19 08:09 Discontinued 9 ml INH NOW ONE Azithromycin [Zithromax] Med 03/22/19 08:09 Discontinued 500 mg PO NOW ONE CefTRIAXONE [Rocephin] 1 gm Med 03/22/19 08:09 Discontinued 0.9% Sodium Chloride Inj [Ns] 50 ml IV NOW Ketorolac [Toradol] Med 03/22/19 08:10 Discontinued 30 mg IV NOW ONE Levofloxacin 750 mg/D5w [Levaquin 750 mg/D5w] Med 03/22/19 08:54 Active 750 mg in 150 ml IV NOW Methylprednisolone Sod Succ [Solu-Medrol] Med 03/22/19 08:09 Discontinued 125 mg IV NOW ONE Aerosol Treatments Routine Oth 03/22/19 08:10 Active Aerosol Treatments Stat Ot 03/22/19 08:10 Active Pulse Oximetry Stat Ot 03/22/19 08:09 Active Result Diagrams: 03/22/19 08:08 03/22/19 08:08 - REASSESSMENT Reassessment #1 Time Reassessed: 09:01 Status: improving (Given IVF bolus, IV levaquin/vanco, duoneb x 3, acetaminophen po for fever, IV toradol. Patient meets sepsis criteria, but no hypotensi on/lactate negative, so NOT severe sepsis or septic shock.) - EKG 1 Time of EKG reading by physician:: 08:05 EKG Read and Signed by:: Sukhwinder Cortez EKG Interpretation (*Must complete 3 of following elements*): Abnormal Rate: 98 Rhythm: NSR [place]: normal QRS: poor R wave progression, other (bilateral atrial enlargement) ST Wave: non-specific ST changes - XRAY 1 XRAY Study: Chest Impression: Abnormal, See EMR Report ( CHEST-2 VIEWS - 03/22/2019 INDICATION: cough COMPARISON: 07/25/2016 FINDINGS: There is substantial infiltrate in the left lower lobe. Heart size is normal. No pneumothorax or pleural effusion. IMPRESSION: Left lower lobe pneumonia. Electronically signed by Dustin Lowry 03/22/2019 8:36 AM 03/22/19 0836 Interpreting Physician: uDstin Lowry MD Dictated Date/Time: 03/22/19 0832 cc: Sukhwinder Cortez MD; Elise Holman) - CONSULTS/PCP/HOSPITALIST Notification #1 *Consult/PCP/Hospitalist*: Hospitalist paged at 0900 Time Discussed: 09:10 (SUSAN hurtado) Consult Disposition: Will see in ED, Admit (to [facility]) Departure - Departure Date of Disposition Decision: 03/22/19 Time of Disposition Decision: 09:07 DIAGNOSIS: Hyponatremia Sepsis without acute organ dysfunction Qualifiers: Sepsis type: sepsis due to unspecified organism Qualified Code(s): A41.9 - Sepsis, unspecified organism Left lower lobe pneumonia Qualifiers: Pneumonia type: due to unspecified organism Qualified Code(s): J18.1 - Lobar pneumonia, unspecified organism CHF (congestive heart failure), NYHA class II Qualifiers: Congestive heart failure type: combined Congestive heart failure chronicity: acute on chronic Qualified Code(s): I50.43 - Acute on chronic combined systolic (congestive) and diastolic (congestive) heart failure Disposition: ADMITTED INPATIENT 09 Certified Medical Emergency: Emergent Condition: Fair Referrals and Follow-Ups: Elise Holman CRNP [Primary Care Provider] - - Critical Care Note This patient required my direct & personal management of CC.: Yes Total Time (mins): 34 (Resp/[employer] systems critical) Critical Care Statement: This patient required my direct personal management to treat or rule out processes, the absence of which, could potentiallly result in sudden, clinically significant life or limb threatening deterioration. Attestation - Physician/ BARBY Attestation Patient care was provided by Advanced Practice Provider:: No The physician spent face to face time with patient:: Yes Advanced Practice Provider documentation review:: Supervising physician onsite and consulted in the evaluation and care of this patient. The physician did have a face to face encounter with the patient.
[2019-03-22 09:27] LABS: INR 1.31; PROTIME 16.5 Seconds (11.0-16.0)
[2019-03-22 09:28] LABS: PTT 47.8 Seconds (22.3-41.8)
[2019-03-22 09:32] LABS: ALLEN TEST YES; BE -0.5 mmoll (-3.0-3.0); BLOOD TYPE ARTERIAL; HCO3-(ACT) 24.5 mmoll (20.0-26.0); METHB 0.1 % (0.0-1.5); O2(CT) 15.2 mL/dL (15.0-23.0); O2HB 93.3 % (95.0-99.0); PCO2(98.6) 27 mmHg (35-45); PO2(98.6) 59 mmHg (60-100); SAMPLE BLOOD; SAO2 93.4 % (95.0-100.0); THB 11.6 g/dL (11.5-17.4); pH(98.6) 7.51 (7.35-7.45)
[2019-03-22 09:33] LABS: MODALITY ROOM AIR
[2019-03-22] MEDS ORDERED: VANCOMYCIN IV PER PHARMACY MISC SCH (09:36)
[2019-03-22] MEDS ORDERED: NS 1,000 ML IV SCH (09:36)
[2019-03-22] MEDS ORDERED: DUONEB (A & A) INH PRN (09:36)
[2019-03-22] MEDS ORDERED: TYLENOL PO PRN (09:36)
[2019-03-22 09:51] LABS: CK INDEX 0.1 (0.0-2.5); CK-MB 1.76 ng/mL (0.0-5.0)
[2019-03-22] MEDS: HUMALOG SUBQ SCH ×3 (11:00→20:46)
[2019-03-22] MEDS ORDERED: GLUCOPHAGE PO SCH (12:00)
[2019-03-22] MEDS: VANCOMYCIN 2,000 MG in NS 500 ML IV SCH ×2 (12:05→23:16)
[2019-03-22] MEDS: DUONEB (A & A) INH SCH ×4 (12:10→22:42)
--- NOTE | 2019-03-22 12:17 | PROGRESS NOTE ---
DATE: 03/22/2019 SUBJECTIVE: Mr. Crum is a 48-year-old gentleman who got admitted yesterday, mainly because of cough, fever, left-sided pleuritic chest pain. Imaging studies which were done on admission suggest a left lower lobe pneumonia. Mr. Crum has a history of coronary artery disease, status post stent, borderline diabetes, hypertension, morbid obesity. This morning, he refers to be feeling a whole lot better. He has been having a lot of sweats and chills. OBJECTIVE: Current Vital Signs: Blood pressure is 104/62, pulse of 90, respirations 20, temperature is 98.8 degrees. General: Mr. Crum is a 48-year-old gentleman. He was sitting up at the edge of the bed, in no distress. HEENT: Mucosa is pink and moist. Anicteric. Acyanotic. He was drenched in sweat. Chest: Good air entry bilaterally. Some crepitations bilaterally, more to the left than the right. Cardiovascular: Regular rate and rhythm. There are no murmurs, no rubs, no gallops. GI: Abdomen was soft. It is distended, but nontender. Bowel sounds present. Extremities: No pedal edema. PET TECHNOLOGIST: The patient is awake, alert, and oriented. IMAGING AND LABORATORY DATA: WBC is 10.87. Rest of the CBC is unremarkable. Chemistry is also reviewed. Sodium is 127, potassium is 3.7, chloride is 87, bicarb is 21, AST is minimally elevated. ProBNP is slightly elevated. A chest x-ray shows a left lower lobe pneumonia. The patient is currently on Zosyn and vancomycin. ASSESSMENT: 1. Sepsis secondary to left lower lobe pneumonia. Cultures have been done. The patient has been started on broad-spectrum intravenous antibiotics. Will continue to follow. 2. Left pleuritic chest pain secondary to pneumonia. 3. History of coronary artery disease, status post stents. 4. Hypertension, controlled. 5. Dyslipidemia. cc: Roel Kwon MD
[2019-03-22 13:09] LABS: CK INDEX 0.1 (0.0-2.5); CK-MB 1.92 ng/mL (0.0-5.0)
--- NOTE | 2019-03-22 14:23 | HISTORY AND PHYSICAL ---
PRIMARY CARE PROVIDER: Marlyn Holman. RETAIL HELPER: Dr. Garcia. CHIEF COMPLAINT: Feeling terrible. HISTORY OF PRESENT ILLNESS: Mr. Crum is a 48-year-old male who carries a past medical history of coronary artery disease, status post non-STEMI and 2 stents, hypertension, hyperlipidemia, diabetes mellitus, eczema, tobacco use and abuse, who reported that Saturday night, he started having hot and cold flashes, along with a productive cough that was yellow and green sputum production. He had some associated shortness of breath with his coughing, as well as some intermittent wheezing. No chest pain per se, but he did have some lung pain, as well as headache, but no dizziness, nausea, vomiting, diarrhea. He continued to progressively get worse, and due to the lung pain and having coronary artery disease, he decided to come to the ED to be evaluated. He did try to self-medicate at home without any relief. On workup in the ED, initially he was afebrile with a heart rate of 103, normotensive blood pressures, 95% on room air, with a white count of 10. Chest x-ray revealed a left lower lobe pneumonia. He was given a dose of IV antibiotics, a L of fluid, and IV steroids, and then he spiked a temperature of 102 degrees, and the hospitalist was called for admission. He does not quite rule in for sepsis, but we will broaden his antibiotics with vancomycin and Zosyn. His lactate still remained normal. PAST MEDICAL HISTORY: 1. Coronary artery disease, status post MS and 2 cardiac stents. 2. Diabetes mellitus, on metformin. 3. Eczema. 4. Hypertension. 5. Hyperlipidemia. 6. Tobacco use and abuse. PAST SURGICAL HISTORY: 1. Two cardiac stents. 2. Tonsillectomy. 3. Vasectomy. SOCIAL HISTORY: He reports he quit smoking 2 days ago, but up until then, he continued to be a [id number] smoker. No alcohol or illicit drug use. He is . He has no children. FAMILY HISTORY: Father with a brain aneurysm. Mother unknown. REVIEW OF SYSTEMS: A 12-point review of systems was complete and negative, except for those mentioned in the HPI. ALLERGIES: Keflex causes diarrhea. HOME MEDICATIONS: 1. Metformin. 2. Lovastatin. 3. Lisinopril. 4. Coreg. 5. Aspirin. PHYSICAL EXAMINATION: VITAL SIGNS: Temperature 102.7 degrees, heart rate 96, respirations 22, blood pressure 161/101, O2 is 96% on room air. GENERAL: Mr. Crum is a 48-year-old male who is sitting up on the stretcher in no acute distress. HEENT: Atraumatic, normocephalic. PERRL. NECK: Supple. Trachea midline. CARDIOVASCULAR: S1, S2 appreciated. No murmurs, gallops, rubs noted. RESPIRATORY: Lung sounds clear in all lung ibanez. No rales, rhonchi, or wheezes. GASTROINTESTINAL: Soft, nontender, nondistended. Positive bowel sounds in 4 quadrants. LOWER EXTREMITIES: Do not appreciate any edema. NEUROLOGIC: No focal deficits noted. SKIN: He does have some peeling to his palms secondary to eczema. LABORATORY AND DIAGNOSTIC DATA: Chest x-ray shows a left lower lobe pneumonia. Urinalysis has been uncollected. EKG has been ordered. CBC: White count 10, hemoglobin and hematocrit 13 and 39, platelet count 225,000. Sodium 127, potassium 3.7, BUN 14, creatinine 0.7, blood glucose is 208. AST is 50, ALT 26. CK is 1757. Troponin 0.080. ProBNP was 5379. Albumin 3.2. Plasma lactate was 1.8. ASSESSMENT AND PLAN: 1. Sepsis rule in, without any organ system dysfunction, secondary to a left lower lobe pneumonia. We will broaden his intravenous antibiotics. He does have negative lactate. His white count is only 10. He has been intermittently tachycardic. However, he did spike a fever in the emergency department of 102. He did receive a liter fluid bolus. We will continue with intravenous fluids and broad-spectrum antibiotics. 2. Left lower lobe pneumonia. Will continue with broad-spectrum antibiotics, supplemental oxygen, bronchodilators, and aggressive pulmonary toilet. 3. Mildly elevated troponin. The patient is not complaining of any cardiac-type chest pain, just lung pain from pneumonia. We will continue to trend his cardiac enzymes. He does have an elevated CK as well. We will continue to trend his CK, and continue with intravenous fluids. 4. Elevated proBNP. The patient denies having any history of heart failure. His last echocardiogram shows normal ejection fraction. We will recheck his proBNP in the morning. 5. Transaminitis. AST is 50. We will hold his metformin and statin. Recheck his liver function tests in the morning. 6. Diabetes mellitus, on metformin, uncontrolled. Will check a hemoglobin A1c in the morning, and place him on sliding scale. 7. Hypertension. Will continue his home Coreg and lisinopril. 8. Hyperlipidemia. Will hold his statin for now, and recheck his liver enzymes in the morning. 9. Nicotine dependence. The patient reports he did quit smoking 2 days ago. However, we will need to continue with smoking cessation education daily as he continues with his noncompliance. 10. Coronary artery disease, status post myocardial infarction with placement of 2 stents in 2017. The patient is denying any cardiac-type chest pain. 11. Further recommendations to follow physician evaluation, laboratory and diagnostic data. Dictated by SUSAN Zaidi for Roel Kwon MD cc: MD Elise Hook CRNP Ashish K. Basu, MD
--- NOTE | 2019-03-22 15:27 | EKG Report ---
Test Performed on : 03/22/2019 11:38:16 AM Test Reason : known CAD elevated trop Blood Pressure : / mmHG Vent. Rate : 076 BPM Atrial Rate : 076 BPM P-R Int : 138 ms QRS Dur : 100 ms QT Int : 426 ms P-R-T Axes : 038 038 073 degrees QTc Int : 479 ms Normal sinus rhythm. with sinus arrhythmia. Normal ECG When compared with ECG of 22-MAR-2019 07:52, (Unconfirmed) No significant change was found Unconfirmed Result
[2019-03-22 16:46] LABS: URINE SOURCE CLEAN CATCH
[2019-03-22 16:58] LABS: BILIRUBIN URINE NEGATIVE (NEGATIVE); BLOOD URINE SMALL (NEGATIVE); COLOR YELLOW; GLUCOSE URINE >1000 mg/dL (NEGATIVE); KETONE URINE 20 mg/dL (NEGATIVE); LEUKOCYTES URINE NEGATIVE (NEGATIVE); NITRITE URINE NEGATIVE (NEGATIVE); PROTEIN URINE TRACE mg/dL (NEGATIVE); SP GRAVITY URINE 1.007; TURBIDITY URINE CLEAR (CLEAR); UROBILINOGEN URINE NORMAL (NORMAL)
[2019-03-22 17:25] LABS: UR EPITHELIAL CELLS <10 /HPF (<10); URINE BACTERIA NEGATIVE /HPF; URINE RBC <10 /HPF (<10); URINE WBC <10 /HPF (<10)
[2019-03-22 17:27] LABS: URINE CASTS NONE SEEN; URINE CRYSTALS NONE SEEN; URINE YEAST NONE SEEN
[2019-03-22] MEDS: ZOSYN 3.375 GM in NS 50 ML IV SCH (18:49)
[2019-03-22] MEDS: COREG PO SCH (20:45)
[2019-03-22] MEDS: PRINIVIL PO SCH (20:45)
[2019-03-22] MEDS ORDERED: MEVACOR PO SCH (21:00)
[2019-03-22 21:04] LABS: CK INDEX 0.3 (0.0-2.5); CK-MB 2.71 ng/mL (0.0-5.0)
[2019-03-23] MEDS: ZOSYN 3.375 GM in NS 50 ML IV SCH ×4 (01:32→22:53)
[2019-03-23] MEDS: DUONEB (A & A) INH SCH ×6 (03:36→23:00)
[2019-03-23] MEDS: HUMALOG SUBQ SCH ×4 (06:32→22:56)
--- NOTE | 2019-03-23 07:17 | Diag Imaging Result Doc PS360 ---
EXAM: CHEST-PORTABLE 03/23/2019 HISTORY: Pneumonia TECHNIQUE: AP portable upright at 0607 COMMENT: The inspiration is slightly less optimal than on the previous study of 03/22/2019. The opacity in the lingula and left lower lobe is slightly improved. There is increased opacity at the right base which may be due to differences in inspiration. IMPRESSION: Mild pulmonary edema versus pneumonia. Electronically signed by Judah Reed 03/23/2019 7:15 AM
[2019-03-23 07:36] LABS: HEMATOCRIT 38.5 % (42.0-52.0); HEMOGLOBIN 12.9 g/dL (14.0-18.0); IMM GRAN# 0.03 X1000 (0.0-0.04); IMM GRAN% 0.3 % (0.0-0.5); LYMPH% 6.3 % (20.5-51.1); MCH 29.3 PG (27-31); MCHC 33.5 g/dL (33-37); MCV 87.3 FL (81-99); MONO# 0.77 X1000 (0.11-0.59); MPV 10.7 FL (7.4-10.4); NEUT# 9.53 X1000 (1.4-6.5); NEUT% 86.4 % (42.2-75.2); PLT 236 X1000 (130-400); RBC 4.41 XMIL (4.7-6.1); WBC 11.03 X1000 (4.8-10.8)
[2019-03-23 07:43] LABS: HEMOGLOBIN A1C 8.2 % (4.8-6.0)
[2019-03-23 07:54] LABS: AGAP 15; ALB/GLOB RATIO 0.8; ALBUMIN 2.6 g/dL (3.5-5.0); ALKALINE PHOSPHATASE 65 U/L (32-122); BUN 15 mg/dL (8-22); CALCIUM 8.2 mg/dL (8.8-10.2); CHLORIDE 98 mmol/L (98-107); COSMO 281; CREATININE 0.6 mg/dL (0.7-1.2); ESTIMATED GFR > 60; GLUCOSE 274 mg/dL (70-104); GOT 46 U/L (10-34); GPT 35 U/L (10-44); POTASSIUM 3.6 mmol/L (3.5-5.1); SODIUM 135 mmol/L (136-145); TCO2 22 mmol/L (25-35); TOTAL BILIRUBIN 0.52 mg/dL (0.20-1.00); TOTAL PROTEIN 5.9 g/dL (6.3-8.3)
[2019-03-23 08:02] LABS: BANDS 6 % (0-1); LYMPHS 12 % (21-51); MONO 2 % (1-9); SEGS 80 % (42-75)
--- NOTE | 2019-03-23 08:21 | EKG Report ---
Test Performed on : 03/22/2019 07:52:05 AM Test Reason : ED. NO EKG ORDER FOR MUSE Blood Pressure : / mmHG Vent. Rate : 098 BPM Atrial Rate : 098 BPM P-R Int : 118 ms QRS Dur : 100 ms QT Int : 364 ms P-R-T Axes : 051 057 058 degrees QTc Int : 464 ms Normal sinus rhythm. Low voltage QRS Nonspecific ST abnormality Abnormal ECG When compared with ECG of 26-JUL-2016 06:27, ST now depressed in Lateral leads Nonspecific T wave abnormality, improved in Inferior leads Nonspecific T wave abnormality no longer evident in Lateral leads Unconfirmed Result
[2019-03-23] MEDS: ASPIRIN PO SCH (08:43)
[2019-03-23] MEDS: PRINIVIL PO SCH ×2 (08:44→22:56)
[2019-03-23] MEDS: COREG PO SCH ×2 (08:44→22:56)
[2019-03-23] MEDS: VANCOMYCIN 2,000 MG in NS 500 ML IV SCH ×2 (11:40→23:32)
--- NOTE | 2019-03-23 12:17 | PROGRESS NOTE ---
DATE: 03/23/2019 SUBJECTIVE: This morning, Mr. Crum refers to be doing well. He feels the shortness of breath has significantly improved and no more chest pain. He has not had any more drenching sweats, and his temperatures have been under control. OBJECTIVE: Vital signs: Blood pressure is currently 124/77, pulse of 77, respiration is 19, temperature is 97.9 degrees. General exam: Mr. Crum is a 48-year-old, morbidly obese gentleman. He was sitting at the edge of the bed in no distress. HEENT: Mucosa is pink and moist. Anicteric. Acyanotic. Neck: Supple. Chest: Air entry was bilaterally reduced, more so to the left posterior lung where there were crackles. Cardiovascular: Regular rate and rhythm. No murmurs, no rubs, no gallops. GI/Abdomen: Soft, distended, but nontender. Bowel sounds present. Extremities: No pedal edema. Distal pulses present. EDGING CATCHER: Patient is awake, alert, oriented. There is no focal neurological deficit. LABORATORY DATA: WBC is 11.03, hemoglobin is 12.9, platelet count of 236. Chemistry is also reviewed. Sodium is up to 135, potassium is 3.6, chloride 98, bicarbonate is 22. ProBNP is down to 3874. CURRENT MEDICATIONS: Have also been reviewed. Antimicrobials include Zosyn and vancomycin; today is day 1. ASSESSMENT: 1. Sepsis secondary to left lower lobe pneumonia. The patient is on broad- spectrum antimicrobial coverage (Zosyn and vancomycin). Today is day 1 on antibiotics. 2. Left pleuritic chest pain secondary to pneumonia, improved. 3. History of coronary artery disease, status post stents, currently asymptomatic. 4. Hypertension, controlled. 5. Dyslipidemia. 6. Morbid obesity with body mass index of 36.5 with management advised. 7. Tobacco use and abuse prior to hospitalization. Patient has been counseled. 8. Elevated proBNP, which would be concerning for congestive heart failure. The patient did have an echocardiogram last year, which showed an ejection fraction of 50% to 55%. We are going to repeat the echocardiogram to rule out congestive heart failure as a confounding etiology for the patient's shortness of breath. cc: Roel Kwon MD [facility]
--- NOTE | 2019-03-23 21:21 | ECHO REPORT ---
ORDER DATE: 03/23/2019 MEASUREMENTS: Septal thickness 1.3, left ventricular internal diameter end diastole 5.8, posterior wall thickness 1.2, left ventricular internal diameter end systole 4.7, aortic root 3.2, left atrium 4.7. SUMMARY: 1. Technically difficult study due to limited acoustic window quality. 2. Aortic valve is trileaflet and opens normally on two-dimensional images. Peak gradient across aortic valve is less than 10 mmHg. There is a very mild aortic regurgitation. Mitral and tricuspid valves are without evidence of structural abnormality while pulmonic valve was not well demonstrated. There is mild mitral regurgitation and trace tricuspid regurgitation. The estimated systolic PA pressure by Doppler is 35 to 40 mmHg, suggesting mild pulmonary hypertension. Aortic root is normal in size. 3. Mild left ventricular enlargement with mild concentric left hypertrophy is demonstrated. The estimated left ejection fraction is approximately 35% in the setting of global hypokinesis. Left atrium is moderately enlarged. Right atrium and right ventricle are normal in size with grossly preserved right ventricular systolic performance. 4. No pericardial effusion. 5. Appearance of inferior vena cava suggests normal central venous pressure. CONCLUSIONS: 1. Very mild aortic regurgitation. 2. Mild mitral regurgitation. 3. Mild pulmonary hypertension by Doppler. 4. Mild left ventricular enlargement with mild concentric left hypertrophy and estimated left ejection fraction of approximately 35%. 5. Moderate left atrial enlargement. cc: Adam Kemp MD
[2019-03-24] MEDS: DUONEB (A & A) INH SCH ×6 (04:57→23:28)
[2019-03-24] MEDS: ZOSYN 3.375 GM in NS 50 ML IV SCH ×3 (05:06→16:24)
[2019-03-24] MEDS: HUMALOG SUBQ SCH ×4 (07:01→20:59)
[2019-03-24 07:44] LABS: HEMATOCRIT 37.5 % (42.0-52.0); HEMOGLOBIN 12.5 g/dL (14.0-18.0); MCH 29.7 PG (27-31); MCHC 33.3 g/dL (33-37); MCV 89.1 FL (81-99); MPV 10.8 FL (7.4-10.4); RBC 4.21 XMIL (4.7-6.1); RDW 14.5 % (11.5-14.5); WBC 9.91 X1000 (4.8-10.8)
[2019-03-24 08:07] LABS: AGAP 11; ALBUMIN 2.7 g/dL (3.5-5.0); BUN 14 mg/dL (8-22); CALCIUM 8.4 mg/dL (8.8-10.2); CHLORIDE 97 mmol/L (98-107); COSMO 272; CREATININE 0.8 mg/dL (0.7-1.2); ESTIMATED GFR > 60; GLUCOSE 189 mg/dL (70-104); PHOSPHORUS 1.8 mg/dL (2.7-4.5); POTASSIUM 3.9 mmol/L (3.5-5.1); SODIUM 133 mmol/L (136-145); TCO2 25 mmol/L (25-35)
--- NOTE | 2019-03-24 08:48 | Diag Imaging Result Doc PS360 ---
EXAM: CHEST-2 VIEWS 03/24/2019 HISTORY: hypoxia TECHNIQUE: PA and lateral chest COMMENT: There is mildly increased interstitial opacity bilaterally and there is alveolar opacity in the posterior left lower lobe. Compared to 03/23/2019 the pulmonary edema was apparently present previously. IMPRESSION: Pulmonary edema. Left lower lobe pneumonia. Electronically signed by Judah Reed 03/24/2019 8:46 AM
[2019-03-24] MEDS: ASPIRIN PO SCH (10:42)
[2019-03-24] MEDS: COREG PO SCH ×2 (10:42→20:58)
[2019-03-24] MEDS: PRINIVIL PO SCH ×2 (10:42→20:58)
[2019-03-24] MEDS: VANCOMYCIN 2,000 MG in NS 500 ML IV SCH (12:20)
--- NOTE | 2019-03-24 15:50 | Diag Imaging Result Doc PS360 ---
CT THORAX/ABD/PELVIS W/O CON - 03/24/2019 INDICATION: Dyspnea, pneumonia, concern for hepatic congestion COMPARISON: None FINDINGS: CHEST: There is dense pneumonia in the left lower lobe. There is a trace parapneumonic effusion. There is mild cardiomegaly. Trace pericardial effusion. Moderately advanced triple-vessel calcified coronary artery disease. The right lung is clear of infiltrate. The airways are clear. There are moderate degenerative changes of the spine. No acute or suspicious bony lesion. Abdomen pelvis: There is mild body wall edema. There is a benign right renal cyst measuring about 6 cm. No radiodense renal stones. No hydronephrosis or hydroureter. The liver appears normal. Other abdominal organs all appear normal. No bowel obstruction or inflammation. Urinary bladder, prostate, and rectum are normal. There are moderate degenerative changes of the spine. No acute or suspicious bony lesion. IMPRESSION: 1. Dense left lower lobe pneumonia with parapneumonic effusion. 2. Mild cardiomegaly. Trace pericardial effusion. Advanced coronary artery disease. This exam was performed using automated exposure control, adjustment of mA or kV according to patient size, and/or use of iterative reconstruction technique Electronically signed by Dustin Lowry 03/24/2019 3:47 PM
[2019-03-24] MEDS ORDERED: SODIUM PHOSPHATE 40 MEQ in NS 250 ML IV ONE (16:39)
[2019-03-24] MEDS: LOVENOX SUBQ SCH (19:47)
--- NOTE | 2019-03-24 19:56 | PROGRESS NOTE ---
DATE: 03/24/2019 SUBJECTIVE: The patient's breathing is okay. He spent quite a bit of time complaining about his work situation, that his employer has not been forthright with him about his job. OBJECTIVE: Vital signs: Blood pressure 106/69, heart rate 78, respiratory rate 19, temperature 98.3 degrees, 97% on room air. Cardiovascular: Regular rate and rhythm. Pulmonary: Rales at the left base. GI: Soft, nontender, and nondistended. Bowel sounds are positive. White count is 9.9, hemoglobin and hematocrit 12 and 37, platelets 269,000. Phosphorus is 1.8. CRP is 66. ProBNP is 3870. PROBLEM LIST: 1. Large left lower lobe dense pneumonia, which was confirmed on CT for today. He is on vancomycin and Zosyn. This will be day 2. We will continue pulmonary toilet and follow closely. At this point, I do not think he needs Pulmonary. We will continue to monitor and treat. 2. New congestive heart failure with mild exacerbation. Cardiology is following. He is getting a very extensive evaluation. I guess we are looking for nephrotic range urinary issues. His kidney function though is normal. 3. Hypophosphatemia. We will supplement and follow. DISPOSITION: I think he may need another day or two here pending other workup. He is on appropriate therapy, lisinopril, Coreg. We will continue to monitor closely. cc: Usama Phipps MD
--- NOTE | 2019-03-24 20:18 | CARDIOLOGY CONSULTATION ---
DATE: 03/24/2019 CHIEF COMPLAINT: Shortness of breath, dyspnea, low ejection fraction. HISTORY: Mr. Crum is a 48-year-old male who is known to our service, Dr. Garcia. The patient presented for admission to the emergency department on 03/22, complaining of at least a couple of days of chills, fever, discomfort in the left anterior chest and shortness of breath. Upon presentation, a chest x-ray showed left lower lobe pneumonia. His white count was elevated. He has been started on antibiotics including piperacillin and vancomycin. They did an echocardiogram yesterday that showed an ejection fraction of 35%, and that led to concern. A proBNP level also on admission was elevated at 5379, subsequently down to 3874. The patient states that since his admission and for the past 48 hours he has experienced improvement. He is feeling definitely better. He is not febrile. PAST MEDICAL HISTORY: Positive for coronary heart disease, previous stents about 2-1/2 years ago. He has had myocardial infarction. He has hypertension, hyperlipidemia, diabetes mellitus type 2. He is obese. Body mass index is 36.5. PAST SURGICAL HISTORY: He has had tonsillectomy and vasectomy. SOCIAL HISTORY: He is . He has been working at [employer], night shifts. He has been smoking 1 pack a day of cigarettes for 30 years; however, he just quit about a week ago. FAMILY HISTORY: Father had a brain aneurysm. ALLERGIES: Cephalexin. MEDICATIONS: Home medications reported include aspirin 81 daily, carvedilol 12.5 twice a day, lisinopril 20 mg twice a day, lovastatin 20 mg at bedtime, metformin 850 three times a day. REVIEW OF SYSTEMS: He is chronically fatigued and tired. He does not have a whole lot of chest discomfort normally. He has no swelling. No syncope, dizziness or palpitations. No abdominal issues. No musculoskeletal issues. No hematological condition. No immunological issues. No strokes, headaches or seizures. No psychiatric illness. No genitourinary complaints. PHYSICAL EXAMINATION: Vital Signs: Blood pressure 130/75, temperature 98.7 degrees, pulse 99, respirations 22. General: Awake, alert, oriented, in no distress. HEENT: Unremarkable. Neck: No jugular venous distention. No cervical bruits. Chest: Slightly diminished in the left base. Heart: Sounds are regular and rhythmic. I do not hear a gallop or murmur. Abdomen: Obese, nontender. Extremities: Good pulses. No peripheral edema. Neurologic: Exam is nonfocal. Moves all 4 extremities. DIAGNOSTIC DATA: His EKG from 03/22 at 7:52 a.m. shows sinus rhythm with nonspecific ST abnormality. Subsequent EKG at 11:38 a.m. shows sinus rhythm with sinus arrhythmia. His most recent chest x-ray from today shows pulmonary edema and left lower lobe pneumonia. LABORATORY DATA: Albumin is 2.7, BUN 14, creatinine 0.8. Hemoglobin 12.5, platelet count is 269,000. IMPRESSION: 1. Patient with left lower lobe pneumonia. 2. History of coronary heart disease, previous stent, myocardial infarction. 3. Patient with chronic systolic left ventricular dysfunction/chronic systolic heart failure. This is due to ischemic heart disease plus component of acute metabolic stress. 4. History of diabetes mellitus type 2. 5. History of hypertension. 6. Question of sleep apnea syndrome on top of obesity. RECOMMENDATIONS: We have requested inflammatory markers. His sedimentation rate is 63 mL/h. D- dimer is 2.94 mcg/mL FEU. His C-reactive protein is 66.38 mg/L. Troponins have been checked several times. They are 0.08, 0.081 and 0.058, which falls within the negative range. Albumin is low at 2.7 g%. We will continue present regimen as outlined by the primary service, and we will consider making adjustments on his diuretics as needed. At this time the patient seems to be improving. I am going to ask for a CT scan of the thorax and abdomen. I am concerned about 2 things on him: One is the possibility of fatty liver disease, early cirrhosis because of his low albumin and his diabetes mellitus, which is probably not optimally controlled. His hemoglobin A1c is 8.2%. In addition, I want to see the extent of his pneumonic infiltrate. Because of his history of tobacco abuse, this could have the potential to evolve into some malignancy down the road. We will continue to follow him. cc: Tulio Corcoran MD
[2019-03-24] MEDS ORDERED: LOVENOX SUBQ SCH (21:00)
[2019-03-25] MEDS: ZOSYN 3.375 GM in NS 50 ML IV SCH ×5 (00:28→23:30)
[2019-03-25] MEDS: VANCOMYCIN 2,000 MG in NS 500 ML IV SCH ×2 (01:33→13:05)
[2019-03-25] MEDS: DUONEB (A & A) INH SCH ×6 (03:41→23:06)
[2019-03-25] MEDS: HUMALOG SUBQ SCH ×4 (06:42→21:20)
[2019-03-25 07:54] LABS: BASO# 0.04 X1000 (0.0-0.2); BASO% 0.5 % (0.0-0.8); EOS% 8.3 % (0.0-10.0); HEMATOCRIT 37.5 % (42.0-52.0); HEMOGLOBIN 12.3 g/dL (14.0-18.0); IMM GRAN# 0.05 X1000 (0.0-0.04); IMM GRAN% 0.6 % (0.0-0.5); LYMPH# 1.88 X1000 (1.2-3.4); LYMPH% 22.4 % (20.5-51.1); MCH 28.9 PG (27-31); MCHC 32.8 g/dL (33-37); MCV 88.2 FL (81-99); MONO# 0.76 X1000 (0.11-0.59); MPV 10.5 FL (7.4-10.4); NEUT# 4.97 X1000 (1.4-6.5); NEUT% 59.2 % (42.2-75.2); PLT 285 X1000 (130-400); RBC 4.25 XMIL (4.7-6.1); RDW 14.7 % (11.5-14.5)
--- NOTE | 2019-03-25 08:09 | Extremity Venous Study ---
PROCEDURE NAME: Venous U/S Bilateral Legs - 03/24/2019 REFERRING PHYSICIAN: Not listed. READING PHYSICIAN: Genesis. TRADE SHOW MANAGER: Chaitanya. INDICATION: Shortness of breath. FINDINGS: The deep and superficial veins of both lower extremities were imaged throughout their course. They are compressible, patent, and without thrombus. INTERPRETATION: No DVT or SVT of either lower extremity. cc: MD Lakisha Trujillo PA
[2019-03-25 08:14] LABS: AGAP 12; BUN 10 mg/dL (8-22); CALCIUM 8.5 mg/dL (8.8-10.2); CHLORIDE 103 mmol/L (98-107); COSMO 282; CREATININE 0.8 mg/dL (0.7-1.2); ESTIMATED GFR > 60; GLUCOSE 192 mg/dL (70-104); MAGNESIUM 1.8 mg/dL (1.5-2.7); POTASSIUM 3.1 mmol/L (3.5-5.1); SODIUM 139 mmol/L (136-145); TCO2 24 mmol/L (25-35)
[2019-03-25] MEDS: ASPIRIN PO SCH (08:42)
[2019-03-25] MEDS: COREG PO SCH ×2 (08:42→21:20)
[2019-03-25] MEDS: PRINIVIL PO SCH ×2 (08:42→21:20)
[2019-03-25] MEDS ORDERED: KLOR-CON PO ONE (09:49)
[2019-03-25 15:36] LABS: UR CREATININE 30.2 mg/dL (14-26); UR PROTEIN 6.6 mg/dL
[2019-03-25 15:42] LABS: CREATININE 0.8 mg/dL (0.7-1.2); UR CREATININE TOTAL 1374.1 mg/24 (800-1800)
[2019-03-25 16:00] LABS: URINE GLUCOSE TOTAL 1.1 mg/24 (0.0-0.5)
[2019-03-25] MEDS: LOVENOX SUBQ SCH (21:19)
[2019-03-26] MEDS: VANCOMYCIN 2,000 MG in NS 500 ML IV SCH (00:25)
[2019-03-26] MEDS: DUONEB (A & A) INH SCH ×3 (03:23→10:59)
--- NOTE | 2019-03-26 03:24 | PROGRESS NOTE ---
DATE: 03/25/2019 SUBJECTIVE: The patient has no major complaints. OBJECTIVE: Vital Signs: Blood pressure is 128/89, heart rate is 74, respiratory rate is 16, temperature is 98.3 degrees. Cardiovascular: Regular rate and rhythm. Pulmonary: Bilateral breath sounds. Clear to auscultation. GI: Soft, nontender, nondistended. Bowel sounds are positive. LABORATORY DATA: White count 8, hemoglobin and hematocrit 12 and 37, platelets 285,000, potassium is 3.1. PROBLEM LIST: 1. A large left lower lobe pneumonia. We will continue antibiotics. He seems to be doing okay from that standpoint. I think we will probably be able to transition him to oral antibiotics in the next 24 hours. 2. Congestive heart failure. Cardiology is following. His CT is not consistent with malignancy, although he will need close follow up. It does look like he has advanced triple-vessel calcified coronary disease that will need to be addressed once he has completed treatment for his infection. We will await final recommendations. He will obviously need close follow up with Cardiology. DISPOSITION: I anticipate discharge tomorrow. cc: Usama Phipps MD
[2019-03-26] MEDS: ZOSYN 3.375 GM in NS 50 ML IV SCH (06:22)
[2019-03-26] MEDS: HUMALOG SUBQ SCH ×2 (06:24→11:03)
[2019-03-26 07:58] VITALS: BP 141/101
[2019-03-26] MEDS: PRINIVIL PO SCH (09:12)
[2019-03-26] MEDS: ASPIRIN PO SCH (09:12)
[2019-03-26] MEDS: COREG PO SCH (09:12)
--- NOTE | 2019-03-27 13:33 | DISCHARGE SUMMARY ---
ADMISSION DATE: 03/22/2019 DISCHARGE DATE: 03/26/2019 DISCHARGE DIAGNOSES: 1. Left lower lobe pneumonia, community-acquired. 2. New acute systolic congestive heart failure with known. 3. Coronary artery disease. CONSULTATIONS: Dr. Corcoran, cardiology. PROCEDURES: None. HOSPITAL COURSE: Briefly a 48-year-old male with CAD, diabetes presenting with shortness of breath and cough and sputum production. Chest x-ray showed left lower lobe pneumonia. He was empirically placed on broad-spectrum antibiotics which I think included vancomycin and Zosyn. He had a fever. He slowly improved. Echo was arranged because of history of CAD and his EF had dropped a bit to 35%. He had some LVH, and left atrial enlargement. Lower extremity studies were done which were negative. Cardiology was consulted which then turned into seating his thorax, abdomen and pelvis to evaluate for cirrhosis I guess and/or sleep apnea and his diabetes was not felt to be completely controlled. He improved, was afebrile. White count stabilized. He was felt stable for discharge on the . CT confirmed a dense left lower lobe pneumonia. He is currently on a pretty good regimen for issues now. His sugars have not been too bad, but he is supposed to be on metformin 850 t.i.d., which I think he has not been getting because of the CT scans but he can resume that. DISCHARGE MEDICATIONS: Aspirin 81 daily, Coreg 12.5 b.i.d., Glucophage 850 t.i.d., lovastatin 20 at bedtime, lisinopril 20 b.i.d., Augmentin 875 q.12, we will do it actually for 10 days. There is a concern that the patient could require Entresto. I think the thing is we are not sure he has insurance so we may need to when he follows up with Cardiology decide about that but I will see what we can do about helping him get that set up. DISPOSITION: He will need a follow-up chest x-ray in 4 to 6 weeks. [facility] I think to re-evaluate his systolic dysfunction, possibly repeat his catheterization. TIME SPENT: 32 minute discharge. cc: MD Elise Albert CRNP [facility]
== END 2019-03-26 14:08 | disposition home or self-care (01) | DRG 193 ==
LOC: ED 07:40 → EDIPHOLD 07:40 → OBSVTOIN 09:31 → SUATTDRO 09:31 → 3N 11:30
PROVIDERS: ATTEND Internal Medicine